=== PATIENT | male | born 1990 ===

== ENCOUNTER 2020-06-12 18:54 | Inpatient (IN) ==
[2020-06-12] MEDS ORDERED: PIPERACILLIN/TAZOBACTAM 3,375 MG in SODIUM CHLORIDE 0.9% 100 ML IV STA (19:44)
[2020-06-12] MEDS ORDERED: SODIUM CHLORIDE 0.9% 1,000 ML IV STA (19:46)
[2020-06-12] MEDS ORDERED: FAMOTIDINE 20 MG/2 ML VIAL IV STA (19:47)
[2020-06-12] MEDS ORDERED: fentaNYL 100 MCG/2 ML VIAL ONE ×2 (20:13→21:20)
[2020-06-12] MEDS ORDERED: MIDAZOLAM 2 MG/2 ML VIAL ONE (20:13)
[2020-06-12] MEDS ORDERED: TISSUE ADHESIVE 1 EACH APPLICATOR TOP ONE (20:14)
[2020-06-12] MEDS ORDERED: LIDOCAINE 1% 20 ML VIAL ONE (20:14)
[2020-06-12] MEDS ORDERED: BUPIVACAINE MPF 0.25% 30 ML VIAL ONE (20:14)
[2020-06-12] MEDS ORDERED: HYDROmorphone 2 MG/1 ML VIAL IV PRN (20:45)
[2020-06-12] MEDS ORDERED: diphenhydrAMINE 50 MG/1 ML VIAL IV PRN (20:45)
[2020-06-12] MEDS ORDERED: ONDANSETRON 4 MG/2 ML VIAL IV PRN ×2 (20:45→21:19)
[2020-06-12] MEDS ORDERED: PROMETHAZINE INJ 25 MG in SODIUM CHLORIDE 0.9% 50 ML IV PRN (20:45)
[2020-06-12] MEDS ORDERED: MEPERIDINE 25 MG/1 ML VIAL IV PRN (20:45)
[2020-06-12] MEDS ORDERED: SUGAMMADEX 200 MG/2 ML VIAL IV ONE (21:15)
[2020-06-12] MEDS ORDERED: ACETAMINOPHEN 325 MG TABLET PO PRN (21:19)
[2020-06-12] MEDS ORDERED: MORPHINE 4 MG/1 ML VIAL IV PRN (21:19)
[2020-06-12] MEDS ORDERED: SUCCINYLCHOLINE 200 MG/10 ML VIAL ONE (21:21)
[2020-06-12] MEDS ORDERED: DEXAMETHASONE 4 MG/1 ML VIAL ONE (21:21)
[2020-06-12] MEDS ORDERED: SODIUM CHLORIDE 0.9% 1,000 ML IV ONE (21:21)
[2020-06-12] MEDS ORDERED: LIDOCAINE 2% 5 ML VIAL ONE (21:21)
[2020-06-12] MEDS ORDERED: propofoL 200 MG/20 ML VIAL IV ONE (21:21)
[2020-06-12] MEDS ORDERED: ROCURONIUM 50 MG/5 ML VIAL IV ONE (21:21)
[2020-06-12] MEDS ORDERED: LABETALOL 20 MG/4 ML SYRINGE IV ONE (22:01)
[2020-06-12] MEDS ORDERED: hydrALAZINE 20 MG/1 ML VIAL IV ONE (22:01)
[2020-06-12] MEDS ORDERED: hydrALAZINE 20 MG/1 ML VIAL ONE (22:01)
[2020-06-12] MEDS: LACTATED RINGERS 1,000 ML IV SCH (22:07)
[2020-06-13] MEDS: PIPERACILLIN/TAZOBACTAM 3,375 MG in SODIUM CHLORIDE 0.9% 100 ML IV SCH ×3 (04:43→21:04)
[2020-06-13 06:25] LABS: Basophils % 0.1 % (0.0-0.8); Hematocrit 40.9 VOL% (42.0-52.0); Hemoglobin 14.2 GM/DL (14.0-18.0); Immature Granulocytes % 0.5 %; Immature Granulocytes Absolute 0.06 #; Lymphocytes # 0.9 10*3/uL (1.4-4.0); Lymphocytes % 7.4 % (21.2-54.2); Mean Corpuscular HGB Conc 34.7 GM/DL (32-36); Mean Corpuscular Volume 95.3 FL (87-102); Mean Platelet Volume 9.3 FL (9.6-12.0); Monocytes % 3.9 % (1.7-12.7); Neutrophils % 88.1 % (38.7-73.9); Platelet Count 247 T/CUMM (130-400); Red Blood Count 4.29 MC/CUMM (3.8-5.5); Red Cell Distribution Width 12.2 % (9.3-17.3); White Blood Count 12.8 T/CUMM (4-12)
[2020-06-13 06:55] LABS: Calcium 8.4 MG/DL (8.5-10.1); Osmolality,Calculated 282.3 MOS/KG (273-304)
[2020-06-13] MEDS ORDERED: INFLUENZA VIRUS VACCINE 0.5 ML SYRINGE IM ONE (09:00)
[2020-06-13] MEDS: LACTATED RINGERS 1,000 ML IV SCH ×2 (10:26→12:42)
[2020-06-13] MEDS: PANTOPRAZOLE 40 MG TABLET PO SCH (10:26)
[2020-06-14] MEDS: LACTATED RINGERS 1,000 ML IV SCH (03:54)
[2020-06-14] MEDS: PIPERACILLIN/TAZOBACTAM 3,375 MG in SODIUM CHLORIDE 0.9% 100 ML IV SCH (04:56)
[2020-06-14 06:18] LABS: Basophils % 0.2 % (0.0-0.8); Eosinophils % 0.1 % (0.00-10.9); Hematocrit 39.8 VOL% (42.0-52.0); Hemoglobin 13.4 GM/DL (14.0-18.0); Immature Granulocytes % 0.9 %; Immature Granulocytes Absolute 0.09 #; Lymphocytes # 2.1 10*3/uL (1.4-4.0); Lymphocytes % 21.4 % (21.2-54.2); Mean Corpuscular HGB Conc 33.7 GM/DL (32-36); Mean Corpuscular Volume 97.1 FL (87-102); Mean Platelet Volume 9.5 FL (9.6-12.0); Monocytes % 6.4 % (1.7-12.7); Platelet Count 235 T/CUMM (130-400)
[2020-06-14 07:58] VITALS: BP 123/66
[2020-06-14] MEDS: PANTOPRAZOLE 40 MG TABLET PO SCH (09:21)
== END 2020-06-14 11:46 | disposition home or self-care (01) | DRG 233 ==
LOC: EDBD → EDUNIT# → N.ED 18:54 → N.EDINP 20:50 → N.3E 21:34
PROVIDERS: ADMIT Surgery; ATTEND Surgery